=== PATIENT | male | born 1930 | race Caucasian/White ===

== ENCOUNTER 2017-09-24 14:59 | Observation (INO) ==
[2017-09-24] MEDS ORDERED: Ondansetron 4 MG/2 ML VIAL IVP ONE (15:04)
[2017-09-24] MEDS ORDERED: *HR* Morphine 2 MG/ML SYRINGE IVP ONE ×2 (15:04→17:38)
--- NOTE | 2017-09-24 15:07 | Emergency Department Note ---
Disposition Clinical Impression: Fracture of transverse process of lumbar vertebra Qualifiers: Encounter type: initial encounter Fracture type: closed Qualified Code(s): S32.009A - Unspecified fracture of unspecified lumbar vertebra, initial encounter for closed fracture Accidental fall Qualifiers: Encounter type: initial encounter Qualified Code(s): W19.XXXA - Unspecified fall, initial encounter Disposition: Admitted As Inpatient Condition: Good [facility]: [facility] Care Provider[facility] - Forms: ED Satisfaction Letter Time of Disposition: 17:05 Fall HPI - General Chief Complaint: ED Fall Stated Complaint: fall Time Seen by Provider: 09/24/17 15:04 Source: patient, EMS Mode of arrival: ambulatory Limitations: no limitations Nursing Notes Reviewed: Yes Vital Signs Reviewed: Yes - History of Present Illness HPI Narrative: This is an 87-year-old gentleman who presents today after a fall at home. This was unwitnessed. Unclear if his LOC briefly or not as known from the room with him. He is unsteady on his venous was to use his walker but for the last few days has not been wanting to use his walker. He is complaining of upper back pain as well as lower back pain. He is on blood thinners. He has fractured his pelvis before. He comes today by EMS because he was unable to stand up afterwards. Patient denies any chest pain shortness of breath abdominal pain headache blurred vision Pt Subjective Complaint: fall - Related Data Home Medications Medication Instructions Recorded Confirmed Cholecalciferol (Vitamin D3) 1,000 unit PO DAILY 05/23/17 09/24/17 [Vitamin D] Donepezil HCl [Aricept] 10 mg PO DAILY 05/23/17 09/24/17 Lisinopril 30 mg PO HS 05/23/17 09/24/17 Memantine HCl 10 mg PO BID 05/23/17 09/24/17 Simvastatin [Zocor] 30 mg PO HS 05/23/17 09/24/17 metFORMIN [Glucophage] 500 mg PO BIDWM 05/23/17 09/24/17 Ascorbate Calcium [Vitamin C] 500 mg PO DAILY 09/24/17 09/24/17 Mirtazapine [Remeron] 15 mg PO HS 09/24/17 09/24/17 Vitamin E (Dl,Tocopheryl Acet) 400 unit PO DAILY 09/24/17 09/24/17 [Vitamin E] Warfarin [Coumadin] 1.5 mg PO QTUTHSA 09/24/17 09/24/17 Warfarin [Coumadin] 2 mg PO QMWFSU 09/24/17 09/24/17 Allergies Allergy/AdvReac Type Severity Reaction Status Date / Time No Known Allergies Allergy Verified 09/24/17 17:02 Review of Systems: ROS reviewed and negative except as per HPI Chart generated with voice recognition software Fall PMH - Past Medical History Medical history: Reports: arthritis, atrial fibrillation (With anticoagulation) , coronary artery disease, diabetes, hyperlipidemia, hypertension, other ( Alzheimer's) Surgical history: Reports: angioplasty/stent Psychiatric history: Reports: anxiety - Social History Smoking Status: Never smoker Alcohol use: Reports: none Drug use: Reports: none Physical Exam General: NAD, VSS Head: normocephalic, atraumatic Neck: NO CLA, in ccollar, no midline tenderness Chest wall: normal rise, no creptius, no deformity noted Lungs: CTAB back: tender to palpation mid thoracic and sacral, found on palpation during logroll Heart: RRR, no murmur Abd: soft, nontender, BS normal : deferred MSK: strength equal in all four extremities Ext: moves all four extremities, no obvious deformities Skin: cap refill normal, warm, dry Psych: normal affect, not anxious Course Course Narrative: EKG interpreted by myself as atrial fibrillation with a rate of [address] elevation do not have an EKG for comparison at this time Patient presents today after axillae following home. He has been not using his walker according to his family member who takes care of him. Patient has 3 contiguous transverse process fractures L1-3 on the left. He has no other acute findings his lab work is unrevealing. Patient is elderly and is already having frequent falls and I am concerned to send him home with pain medicine for his back as I feel he may fall again he is very high risk. I spoke with Dr Humphries who accepted the pateint for pain control, pt and possible NH placement if he is not safe enough to go home. We then realized patient is a , and have placed a call [facility]: [facility], patient will be admitted here as planned. Vital Signs Temperature 97.7 F 09/24/17 15:05 Pulse Rate 88 09/24/17 15:05 Respiratory Rate 18 09/24/17 15:05 Blood Pressure 145/97 09/24/17 15:05 O2 Sat by Pulse Oximetry 92 09/24/17 15:05 Temperature 97.7 F 09/24/17 15:05 Pulse Rate 98 09/24/17 15:59 Respiratory Rate 16 09/24/17 15:59 Blood Pressure 157/91 09/24/17 15:59 O2 Sat by Pulse Oximetry 92 09/24/17 15:59 Oxygen Delivery Oxygen Delivery Room Air Fall - Medical Records Medical records reviewed: Yes I reviewed the patient's medical records. - Lab Data Lab results reviewed: Yes I reviewed the patient's lab results. Result diagrams: 09/24/17 16:26 09/24/17 16:26 Lab Results 09/24/17 09/24/17 09/24/17 Range/Units 16:26 16:26 16:26 WBC 8.5 (4.3-11.1) K/mcL RBC 3.65 L (4.19-5.50) M/mcL Hgb 11.9 L (12.9-16.9) g/dL Hct 34.0 L (37.5-50.1) % MCV 93.2 (83.0-100.0) fL MCH 32.6 (28.0-33.3) pg MCHC 35.0 (31.6-35.5) g/dL RDW 12.4 (11.5-14.5) % Plt Count 158 (140-400) K/mcL MPV 11.8 (9.4-12.4) fL Immature Gran % 0.8 (0-4) % Seg Neutrophils % 81.0 % Lymphocytes % 11.8 % Monocytes % 5.4 % Eosinophils % 0.8 % Basophils % 0.2 % Neutrophils # 6.9 (1.6-8.9) K/mcL Lymphocytes # 1.0 (0.6-4.6) K/mcL Monocytes # 0.5 (0.0-1.3) K/mcL Eosinophils # 0.1 (0.0-0.6) K/mcL Basophils # 0.0 (0.0-0.2) K/mcL PT 25.9 H (9.4-12.1) Seconds INR 2.4 APTT 43.1 H (26.0-36.0) Seconds Sodium 143 (136-145) mEq/L Potassium 4.2 (3.5-4.5) mEq/L Chloride 106 (98-109) mEq/L Carbon Dioxide 28 (19-29) mEq/L BUN 19 (8-26) mg/dL Creatinine 1.02 (0.72-1.25) mg/dL Est GFR ( Amer) > 60 (> 60) Est GFR (Non-Af Amer) > 60 (> 60) BUN/Creatinine Ratio 19 (6-26) Glucose 136 H (70-99) mg/dL Calculated Osmolality 300 (280-300) Calcium 9.5 (8.6-10.8) mg/dL - Radiology Data Radiology results reviewed: Yes I reviewed the patient's radiology results. - EKG Data EKG attestation: Yes I reviewed and interpreted this EKG.
[2017-09-24 16:34] LABS: Basophils % 0.2 %; Eosinophils # 0.1 K/mcL (0.0-0.6); Eosinophils % 0.8 %; Hemoglobin 11.9 g/dL (12.9-16.9); Immature Granulocytes % 0.8 % (0-4); Lymphocytes % 11.8 %; Mean Corpuscular Hemoglobin 32.6 pg (28.0-33.3); Mean Corpuscular Volume 93.2 fL (83.0-100.0); Mean Platelet Volume 11.8 fL (9.4-12.4); Monocytes # 0.5 K/mcL (0.0-1.3); Monocytes % 5.4 %; Neutrophils # 6.9 K/mcL (1.6-8.9); Platelet Count 158 K/mcL (140-400); Red Blood Count 3.65 M/mcL (4.19-5.50); Red Cell Distribution Width 12.4 % (11.5-14.5)
[2017-09-24 16:42] LABS: INR 2.4; Prothrombin Time 25.9 Seconds (9.4-12.1)
[2017-09-24 16:45] LABS: Activated Partial Thrombo Time 43.1 Seconds (26.0-36.0)
[2017-09-24 16:49] LABS: BUN/Creatinine Ratio 19 (6-26); Blood Urea Nitrogen 19 mg/dL (8-26); Calcium 9.5 mg/dL (8.6-10.8); Carbon Dioxide 28 mEq/L (19-29); Chloride 106 mEq/L (98-109); Glucose 136 mg/dL (70-99); Osmolality,Calculated 300 (280-300); Potassium 4.2 mEq/L (3.5-4.5); Sodium 143 mEq/L (136-145); eGFR For African Americans > 60 (> 60); eGFR For Non-African Americans > 60 (> 60)
[2017-09-24] MEDS ORDERED: Naloxone 0.4 MG/ML INJ IVP PRN (18:04)
[2017-09-24] MEDS ORDERED: *HR* Morphine 2 MG/ML SYRINGE IVP PRN (18:04)
[2017-09-24] MEDS ORDERED: Ondansetron 4 MG/2 ML VIAL IVP PRN (18:04)
[2017-09-24] MEDS ORDERED: *HR* Warfarin 2 MG TABLET PO SCH (18:15)
[2017-09-25] MEDS ORDERED: *HR* Metformin 500 MG TABLET PO SCH (08:00)
[2017-09-25] MEDS: Famotidine 20 MG TABLET PO SCH (08:31)
[2017-09-25] MEDS: Ascorbic Acid 500 MG TABLET PO SCH (08:31)
[2017-09-25] MEDS: Cholecalciferol (D-3) 1,000 UNIT TABLET PO SCH (08:32)
--- NOTE | 2017-09-25 10:22 | Internal Med History&Physical ---
Date of Encounter: 09/25/17 Time of Encounter: 09:50 Assessment and Plan (1) Fracture of transverse process of lumbar vertebra Current visit: Yes Status: Acute Physical therapy and occupational therapy evaluations have been ordered. He will be given scheduled Tylenol with additional analgesic medication available when necessary. Qualifiers: Encounter type: initial encounter Fracture type: closed Qualified Code(s) : S32.009A - Unspecified fracture of unspecified lumbar vertebra, initial encounter for closed fracture (2) Atrial fibrillation Current visit: Yes Status: Acute Continue Coumadin and monitor pro time. Qualifiers: Atrial fibrillation type: chronic Qualified Code(s): I48.2 - Chronic atrial fibrillation (3) Anemia Current visit: Yes Status: Acute We will order anemia testing in a.m. Qualifiers: Anemia type: unspecified type Qualified Code(s): D64.9 - Anemia, unspecified Internal Medicine - H&P: HPI Chief complaint: Fall with vertebral fractures Admitted From: Home Plans for Post Hospital Care: Home History of present illness: Mr. Byrd is a 87 year old male who was brought to the hospital after sustaining a fall at home. He does not remember details about the fall. He is uncertain if there was loss of consciousness. Evaluation in emergency room showed fractures of the right transverse processes of L1- L3. His admitted to [facility] for pain control and therapy evaluations until further disposition can be made. He is a fair historian at best. He is hard of hearing and has a diagnosis of dementia. Review of available records show a fall with pelvic fracture June 2015. He was treated nonoperatively. He has DJD but no known gout or osteoporosis. Vitamin D level was 31 on 06/14/2015. Past Med Surg Social Fam HX - Past Medical History Medical history: arthritis, atrial fibrillation, coronary artery disease, diabetes, hyperlipidemia, hypertension, other Psychiatric history: anxiety - Past Surgical History Surgical History: angioplasty/stent - Social History Smoking Status: Never smoker Smokeless Tobacco Status: No Alcohol use: none Drug use: none Internal Medicine - H&P: Meds Cholecalciferol (Vitamin D3) [Vitamin D] 1,000 unit PO DAILY 05/23/17 [History] Donepezil HCl [Aricept] 10 mg PO DAILY 05/23/17 [History] Lisinopril 30 mg PO QDPC 05/23/17 [History] Memantine HCl 10 mg PO BID 05/23/17 [History] Simvastatin [Zocor] 30 mg PO HS 05/23/17 [History] metFORMIN [Glucophage] 500 mg PO BIDWM 05/23/17 [History] Ascorbate Calcium [Vitamin C] 500 mg PO DAILY 09/24/17 [History] Mirtazapine [Remeron] 15 mg PO HS 09/24/17 [History] Vitamin E (Dl,Tocopheryl Acet) [Vitamin E] 400 unit PO DAILY 09/24/17 [History] Warfarin [Coumadin] 2 mg PO ONCE 09/24/17 [History] 3 Allergy/AdvReac Type Severity Reaction Status Date / Time No Known Allergies Allergy Verified 09/24/17 17:02 All Systems PM: A 10-system review of systems was performed and is negative for pertinent findings except as documented above in the HPI. Review of systems: Review of systems is obtained from available records. Gen.: His weight has decreased from 155 pounds on 06/12/2015 to 143 pounds at present Cardiovascular: He has history of hypertension and known ASHD status post [place] on 2 occasions with most recent one approximately 1999. He had a heart catheter with stents placed at that time. He does not have known heart failure DVT or pulmonary embolus. He has chronic atrial fibrillation and is on Coumadin. Respiratory: He is a lifelong nonsmoker and has no known chronic lung disease GI: No known disorders or liver gallbladder or exocrine pancreas : No history of hematuria dysuria or kidney stones Neurologic: He was diagnosed with dementia approximately 2012. There is no history of large distribution strokes or seizures. Endocrine: He was diagnosed with DM 2 over 10 years ago. He has hyperlipidemia but no known thyroid disease Hematology/oncology: There is no known blood disorders cancers or anemia Psychiatric: He has had anxiety in the past but does not take medication for this. There are no other known mental health diagnosis. [place] skeletal: As per history of present illness - Constitutional Vitals: Temp Pulse Resp BP Pulse Ox 99.0 F 82 16 129/83 100 09/25/17 07:21 09/25/17 09:17 09/25/17 09:17 09/25/17 09:17 09/25/17 09:17 Exam: Gen.: He is a well-developed well-nourished male lying in bed who appears in no acute distress at rest HEENT: Head is atraumatic and normocephalic. Eyes: EOMI. There is no scleral icterus. Mouth: Mucosa is moist. Neck: There is no thyromegaly or adenopathy noted. Heart: Irregularly irregular without murmurs or gallops Lungs: No wheezes or crackles are heard. Back: He has dorsal kyphosis. He complains of low back pain on movement. Abdomen: Soft and nontender. No masses or guarding are noted. Extremities: There is no cyanosis edema or clubbing noted. Dorsalis pedis and posterior tibial pulses are trace palpable bilaterally. He has significant DJD changes of his hands. Neurologic: Mental status: He is able to answer a few questions but is a poor historian. He does not know his age or location. Cranial nerves: Smile is symmetric. Forehead wrinkles bilaterally. Tongue protrudes midline. EOMI. Motor: There is no pronator drift. There is no significant cogwheeling or rigidity on passive range of motion of his arms. Cerebellar: Finger to nose is intact bilaterally. Skin: Warm and dry Internal Med - H&P Results - Labs CBC & Chem 7: 09/24/17 16:26 09/24/17 16:26
[2017-09-25] MEDS: Acetaminophen 325 MG TABLET PO SCH ×2 (14:02→21:25)
[2017-09-25] MEDS: Methyl Salicylate/Menthol 28 GM TUBE TP SCH (14:05)
[2017-09-25] MEDS: Mirtazapine 15 MG TABLET PO SCH ×2 (16:36→21:26)
--- NOTE | 2017-09-25 17:10 | Electrocardiograph Report ---
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
[2017-09-25] MEDS ORDERED: *HR* Warfarin 2 MG TABLET PO SCH ×2 (18:00)
[2017-09-26] MEDS: Acetaminophen 325 MG TABLET PO SCH ×4 (01:00→17:02)
[2017-09-26 06:07] LABS: Basophils % 0.4 %; Eosinophils # 0.1 K/mcL (0.0-0.6); Eosinophils % 1.5 %; Hematocrit 32.3 % (37.5-50.1); Immature Granulocytes % 0.4 % (0-4); Lymphocytes # 1.3 K/mcL (0.6-4.6); Lymphocytes % 28.1 %; Mean Corpuscular HGB Conc 34.1 g/dL (31.6-35.5); Mean Corpuscular Hemoglobin 32.4 pg (28.0-33.3); Mean Corpuscular Volume 95.3 fL (83.0-100.0); Mean Platelet Volume 11.3 fL (9.4-12.4); Monocytes # 0.4 K/mcL (0.0-1.3); Monocytes % 9.2 %; Neutrophils # 2.8 K/mcL (1.6-8.9); Platelet Count 153 K/mcL (140-400); Red Blood Count 3.39 M/mcL (4.19-5.50); Red Cell Distribution Width 12.8 % (11.5-14.5); Segmented Neutrophils % 60.4 %
[2017-09-26] MEDS: Famotidine 20 MG TABLET PO SCH (09:52)
[2017-09-26] MEDS: Cholecalciferol (D-3) 1,000 UNIT TABLET PO SCH (09:52)
[2017-09-26] MEDS: Ascorbic Acid 500 MG TABLET PO SCH (09:53)
[2017-09-26] MEDS: Methyl Salicylate/Menthol 28 GM TUBE TP SCH (09:54)
[2017-09-26 10:21] LABS: % Iron Saturation 16 % (20-55); Iron 38 mcg/dL (65-175); Transferrin 171 mg/dL (174-364)
[2017-09-26] MEDS: *HR* OxyCODONE Immed Rel 5 MG TABLET PO PRN ×2 (10:22→17:02)
[2017-09-26 10:39] LABS: Ferritin 150 ng/ml (22-275)
[2017-09-26 10:57] LABS: Folate 12.7 ng/mL (7.0-31.4)
[2017-09-26] MEDS ORDERED: *HR* Warfarin 3 MG TABLET PO SCH (18:00)
[2017-09-26] MEDS: Mirtazapine 15 MG TABLET PO SCH (20:19)
[2017-09-27 00:20] VITALS: BP 96/61
[2017-09-27] MEDS: Acetaminophen 325 MG TABLET PO SCH ×2 (06:12→06:13)
--- NOTE | 2017-09-27 09:54 | Discharge Summary ---
Date of Encounter: 09/27/17 Time of Encounter: 09:40 - Discharge Diagnosis (1) Fracture of transverse process of lumbar vertebra Priority: Primary Status: Acute Qualifiers: Encounter type: initial encounter Fracture type: closed Qualified Code(s) : S32.009A - Unspecified fracture of unspecified lumbar vertebra, initial encounter for closed fracture (2) Atrial fibrillation Priority: Secondary Status: Chronic Qualifiers: Atrial fibrillation type: chronic Qualified Code(s): I48.2 - Chronic atrial fibrillation (3) Anemia Priority: Secondary Status: Acute Qualifiers: Anemia type: unspecified type Qualified Code(s): D64.9 - Anemia, unspecified - Discharge Medications Prescriptions: OxyCODONE Immed Rel [Roxicodone 5 MG] 5 mg PO Q6HR PRN #12 tablet PRN Reason: Moderate Pain (4-6) Ascorbic Acid [Vitamin C] 500 mg PO DAILY #30 tablet Lidocaine Patch [Lidoderm 5% patch] 1 each TP DAILY #5 adh..patch Home Medications: Cholecalciferol (Vitamin D3) [Vitamin D3] 1,000 unit PO DAILY 05/23/17 [History] Donepezil HCl [Aricept] 10 mg PO DAILY 05/23/17 [History] Memantine HCl 10 mg PO BID 05/23/17 [History] Simvastatin [Zocor] 30 mg PO HS 05/23/17 [History] metFORMIN [Glucophage] 500 mg PO BIDWM 05/23/17 [History] Mirtazapine [Remeron] 15 mg PO HS 09/24/17 [History] Vitamin E (Dl,Tocopheryl Acet) [Vitamin E] 400 unit PO DAILY 09/24/17 [History] Warfarin [Coumadin] 2 mg PO ONCE 09/24/17 [History] Acetaminophen [Tylenol] 650 mg PO Q6HR 5 Days tablet 09/27/17 [Rx] Ascorbic Acid [Vitamin C] 500 mg PO DAILY #30 tablet 09/27/17 [Rx] Lidocaine Patch [Lidoderm 5% patch] 1 each TP DAILY #5 adh..patch 09/27/17 [Rx] Methyl Salicylate/Menthol [Bengay] 1 appl TP DAILY tube 09/27/17 [Rx] OxyCODONE Immed Rel [Roxicodone 5 MG] 5 mg PO Q6HR PRN #12 tablet 09/27/17 [Rx] Allergies/Adverse Reactions: 3 Allergy/AdvReac Type Severity Reaction Status Date / Time No Known Allergies Allergy Verified 09/24/17 17:02 Date of admission: 09/24/17 17:28 Primary care physician: PCP [facility] Consults: 09/24/17 18:05 Consult to Occupational Therapy [CONS] Routine Comment: Evaluate, develop and implement POC Reason for Consult: s/p fall w/ fractures Consult to Stock Broker Supervisor [CONS] Routine Reason for SW Consult: D/C planning - Patient Status Disposition: Transfer SNF Condition: Good Functional capacity at discharge: uses cane/walker Overall status at discharge: patient is progressing back to baseline - Discharge Instructions [facility] With: [facility] Care Provider[facility] - 1 week - Diet and Activity Activity: as per physical therapy Diet: advance to your usual diet Hospital course: Mr. Byrd is a 87 year old male who was brought to the hospital after sustaining a fall at home. He does not remember details about the fall. He is uncertain if there was loss of consciousness. Evaluation in emergency room showed fractures of the right transverse processes of L1- L3. He was admitted to [facility] for pain control and therapy evaluations until further disposition can be made. Initial orders were written by the emergency room physician. I saw him on September 25 and performed the history and physical. He was started on scheduled Tylenol with additional analgesics given when necessary. He had physical therapy and occupational therapy evaluations with ongoing intervention. He made satisfactory progress and on September 27 arrangements were complete for him to be discharged to [facility] where he will be in respite care for a few days. Anemia testing showed iron 38, transferrin saturation 16%, transferrin 171, ferritin 150, B12 617, and folate 12.7. He will be started on ferrous sulfate with vitamin C. - Time Spent with Patient Total time spent providing and/or coordinating discharge services: - Constitutional Vitals: Temp Pulse Resp BP Pulse Ox 98.4 F 73 18 96/61 95 09/27/17 00:19 09/27/17 00:19 09/27/17 00:19 09/27/17 00:19 09/27/17 00:19
[2017-09-27] MEDS: Cholecalciferol (D-3) 1,000 UNIT TABLET PO SCH (11:13)
[2017-09-27] MEDS: Famotidine 20 MG TABLET PO SCH (11:13)
[2017-09-27] MEDS: Ascorbic Acid 500 MG TABLET PO SCH (11:13)
== END 2017-09-27 11:40 ==
LOC: EMEROOPIK 14:59 → INPPIK 14:59
PROVIDERS: ADMIT Internal Medicine; ATTEND Internal Medicine